=== PATIENT | female | born 1960 | race Two or more races ===

== ENCOUNTER → 2024-05-24 | Outpatient (CLI) | payer MEDICAID, SELFPAY ==
--- NOTE | 2024-05-24 15:30 | XR_ITS ---
Examination: Screening digital mammography, bilateral Computer aided detection 3-D breast Tomosynthesis, bilateral Date and time of exam: May 24, 2024 1255 hours Compared to mammograms dating to August 19, 2016 Indication: Screening Technique: Nonmagnified MLO, CC views of the breasts to been obtained, reconstructed from 3-D Tomosynthesis images. R2 computer aided detection program utilized for evaluation of suspicious masses and/or abnormal calcifications. 3-D Tomosynthesis images obtained. Findings: Scattered areas of fibroglandular density Scattered benign calcifications. No interval suspicious masses Impression: BI-RADS category II: Benign Findings. Recommend 1 year follow-up mammogram.
== END | disposition home or self-care (01) ==
PROVIDERS: PCP Specialist; Referring Provider Specialist; Visit Provider Specialist
DX: Z12.31 Encounter for screening mammogram for malignant neoplasm of breast (principal); R92.323 Mammographic fibroglandular density, bilateral breasts; R92.1 Mammographic calcification found on diagnostic imaging of breast
CPT/HCPCS: 77063; 77067

== ENCOUNTER → 2024-06-20 | Outpatient (CLI) | payer MEDICAID, SELFPAY ==
--- NOTE | 2024-06-20 | XR_ITS ---
Examination: PA lateral chest 2 views TECHNIQUE: Upright AP lateral chest 2 views Exam date and time: June 20, 2024 1241 hours Comparison 02/28/2020 INDICATIONS: Coughing congestion beginning 3 weeks ago. FINDINGS: Normal heart size On the lateral view mild pneumonia posterior basal segment left lower lobe No pulmonary edema IMPRESSION: Mild pneumonia posterior basal segment left lower lobe
== END | disposition home or self-care (01) ==
PROVIDERS: PCP Specialist; Referring Provider Physician Assistant; Visit Provider Physician Assistant
DX: J18.9 Pneumonia, unspecified organism (principal)
CPT/HCPCS: 71046

== ENCOUNTER → 2024-08-09 | Outpatient (CLI) | payer MEDICAID, SELFPAY ==
--- NOTE | 2024-08-09 09:30 | XR_ITS ---
Examination: Abdomen sonogram, Limited Date and time of exam: August 19, 2024 1104 hours INDICATIONS: Right upper abdominal pain radiating to back beginning one year ago Technique: Real-time rees scale transabdominal sonographic images of the upper abdomen obtained. Findings: Absent gallbladder Normal common bile duct 0.5 cm Pancreatic head 2.5 cm Liver 16.2 cm smooth contour fatty infiltration 13 mm liver cyst Normal hepatopedal portal venous flow Patent IVC IMPRESSION: Absent gallbladder Normal common bile duct Fatty liver
== END | disposition home or self-care (01) ==
LOC: CDIM 10:37
PROVIDERS: PCP Internal Medicine Gastroenterology; Referring Provider Internal Medicine Gastroenterology; Visit Provider Internal Medicine Gastroenterology
DX: K76.0 Fatty (change of) liver, not elsewhere classified (principal); Z90.49 Acquired absence of other specified parts of digestive tract
CPT/HCPCS: 76705

== ENCOUNTER → 2024-09-18 | Outpatient (CLI) | payer MEDICAID, SELFPAY ==
--- NOTE | 2024-09-18 13:47 | XR_ITS ---
Examination: Lumbar spine 3 views Technique one AP lateral coned lateral lower lumbar spine 3 views Exam date and time: September 18, 2024 1359 hours INDICATIONS: Low back pain months. FINDINGS: Minimal anterolisthesis L4 on L5 No lumbar fracture Moderate lumbar spondylosis Advanced disc narrowing L5-S1 with posterior osteophyte formation IMPRESSION: Advanced degenerative disc disease L5-S1
== END | disposition home or self-care (01) ==
LOC: CDIM 13:00
PROVIDERS: PCP Family Medicine; Referring Provider Physician Assistant; Visit Provider Physician Assistant
DX: M51.379 Other intervertebral disc degeneration, lumbosacral region without mention of lumbar back pain or lower extremity pain (principal)
CPT/HCPCS: 72100

== ENCOUNTER 2024-11-27 11:30 | Day surgery (SDC) | payer MEDICAID, SELFPAY ==
--- NOTE | 2024-11-26 09:42 | EKG_ITS ---
[facility] Test Date: 2024-11-26 Pat Name: DANI BROCK Department: Room: - Gender: Female Principal Embedded Software Engineer: ELOISA : 1960 Requested By: Antwan Zamarripa Order Number: [id number] Reading MD: Antwan Zamarripa Measurements Intervals [place] Rate: 78 P: 44 PA: 170 QRS: 67 QRSD: 108 T: 78 QT: 399 QTc: 456 Interpretive Statements SINUS RHYTHM Compared to ECG 09/18/2020 09:26:12 No significant changes /store/[id number]
[2024-11-26 12:35] LABS: Alanine Aminotransferase 23 U/L (10-49); Albumin, Serum 4.7 gm/dL (3.4-4.8); Alkaline Phosphatase 97 U/L (46-116); Anion Gap 10 (7-16); Aspartate Amino Transferase 30 U/L (0-34); BUN/Creatinine Ratio 13 Ratio (12-20); Bilirubin,Total 0.7 mg/dL (0.3-1.2); Blood Urea Nitrogen 9 mg/dL (9-23); Calcium 9.6 mg/dL (8.3-10.6); Calcium (Corrected) 9.6 mg/dL (8.5-10.1); Carbon Dioxide 24.9 mMol/L (20.0-31.0); Chloride 102 mMol/L (98-107); Creatinine (Component) 0.7 mg/dL (0.6-1.3); Globulin 2.4 gm/dL (2.3-3.5); Glucose 108 mg/dL (74-106); Osmolality,Calculated 273 (275-295); Potassium 3.5 mMol/L (3.4-5.1); Sodium 137 mMol/L (136-145); Total Protein 7.1 gm/dL (5.7-8.2); eGFR > 60 See Note
[2024-11-26 14:55] VITALS: BMI 34.8
[2024-11-27 12:23] VITALS: BP 119/72; PULSE 71; RESP 13; TEMP 36.9; O2SAT 93
[2024-11-27] MEDS: RINGERS LACTATED 500 ML 500 ML 20 ML IV (12:39)
[2024-11-27 14:29] VITALS: BP 137/100; PULSE 74; RESP 18; O2SAT 98
[2024-11-27] MEDS: RINGERS LACTATED 1000 ML 1,000 ML 999 ML IV (14:29)
[2024-11-27 15:16] VITALS: BP 140/89; PULSE 70; RESP 15; TEMP 36.5; O2SAT 97
[2024-11-27 15:25] VITALS: BP 134/63; PULSE 68; RESP 15; O2SAT 96
[2024-11-27 15:35] VITALS: BP 140/84; PULSE 64; RESP 16; O2SAT 96
--- NOTE | 2024-11-27 15:38 | SUR.PHASEII ---
1516: Pt received in [facility] via [facility]. Report from Johanne WELSH. Pt groggy, but awake. Resp even, unlabored. VS stable. Denies pain. 1539: Pt more awake, alert. Resp even, unlabored. VS stable. Denies pain. Pt sitting up tolerating ice chips with no difficulty swallowing and no n/v.
[2024-11-27 15:45] VITALS: BP 124/86; PULSE 60; RESP 15; TEMP 36.6; O2SAT 99
--- NOTE | 2024-11-27 16:37 | SUR.PHASEII ---
Addendum entered by Kathi Sosa RN 11/27/24 16:41: Time for 1600 note timed in error. Time should reflect 1630. Original Note: 1600: Pt fully awake, oriented x3. VS stable. Denies pain. Pt assisted to restroom. Ambulation steady. Pt expelled large amount of air. Pt requested daughter interpret for her. Pt and daughter stated understanding of discharge instructions. Pt discharged from [facility] in stable condition.
== END 2024-11-27 16:30 | disposition home or self-care (01) ==
PROVIDERS: Anesthesiology; PCP Nurse Practitioner Family; Referring Provider Internal Medicine Gastroenterology; Visit Provider Internal Medicine Gastroenterology
PROC: 0DJD8ZZ Inspection of Lower Intestinal Tract, Via Natural or Artificial Opening Endoscopic (ICD-10-PCS; CPT 45378; principal; 2024-11-27 13:15)
PROC: (CPT 43239; 2024-11-27 13:15)
DX: D12.4 Benign neoplasm of descending colon (principal); D12.0 Benign neoplasm of cecum; K63.3 Ulcer of intestine; K64.9 Unspecified hemorrhoids; I10 Essential (primary) hypertension; Z01.810 Encounter for preprocedural cardiovascular examination
CPT/HCPCS: 45385; 45380; 36415; 80053; 93005; A4217; J7120

== ENCOUNTER → 2024-12-24 | Outpatient (CLI) | payer MEDICAID, SELFPAY ==
--- NOTE | 2024-12-24 09:30 | XR_ITS ---
Examination: CT chest with intravenous contrast CT abdomen with intravenous contrast CT pelvis with intravenous contrast 2-D coronal and sagittal reconstructions Time of exam: December 24, 2024 1023 hours Comparison June 14, 2022 INDICATIONS: Right upper abdominal pain radiating to the back beginning 5 months ago CTDI: vol (mGy) : 20.2 DLP: (mGycm): 1088 Technique: Multiple axial images of the chest, abdomen and pelvis with intravenous contrast, 3.0 mm slice thickness. Images obtained post intravenous injection Isovue 370 60 cc. 2-D sagittal and coronal reconstructions. Low dose protocols were performed. One or more of the following dose reduction techniques were used; automated exposure control, adjustment of the mA and/or KV according to patient size, use of iterative reconstruction technique. Findings: No thoracic aortic aneurysm dilatation No pulmonary artery emboli. No paratracheal tracheobronchial or bronchopulmonary adenopathy Linear parenchymal disease at the right base, 30 mm compared to 23 mm on June 14, 2022 Fatty infiltration throughout the liver Gallbladder not visualized No pancreatic splenic or adrenal mass No renal or ureteral calculi, no hydronephrosis Aorta normal size Normal appendix No bowel obstruction No diverticulitis Contracted urinary bladder Absent uterus No pelvic mass Severe osteopenia, stable sclerotic foci compared with June 14, 2022 IMPRESSION: More prominent linear parenchymal disease at the right base, 30 mm compared to 23 mm on June 14, [address] scan follow-up to assess whether this disease is hypermetabolic
== END | disposition home or self-care (01) ==
PROVIDERS: PCP Family Medicine; Referring Provider Family Medicine; Visit Provider Family Medicine
DX: K76.0 Fatty (change of) liver, not elsewhere classified (principal)
CPT/HCPCS: 71260; 74177; A4649; Q9967

== ENCOUNTER → 2025-02-05 | Outpatient (CLI) | payer MEDICAID, SELFPAY ==
--- NOTE | 2025-02-05 15:15 | XR_ITS ---
Examination: MRI lumbar spine without contrast Date and time of exam: February 05, 2025, 1619 hrs. Indications: Low back pain 7 years radiating to left hip and down the left leg to the foot Technique: Multiple MRI axial and sagittal sections lumbar spine. Sagittal T2-weighted images, TR 3500, TE 118 T1 weighted transverse sections, TR 688 T8.5, T2-weighted sagittal sections T1 weighted sagittal sections TR 621, TE 30 T2 axial sections, TR 4, 190, TE 84. Findings: Grade 1 anterolisthesis L4 on L5 No lumbar fracture. Advanced disc narrowing L5-S1. Diffuse lumbar disc desiccation. Adequate alignment lumbar vertebral bodies. L5-S1 6 mm central lumbar disc bulge extending to the foraminal regions with mild left moderate right L5 ganglionic compression L4-L5 6 mm central lumbar disc bulge, mild bilateral L4 ganglionic compression More cephalad levels unremarkable. Impression: Advanced degenerative disc disease L5-S1 L5-S1 6 mm central lumbar disc bulge, mild to moderate right L5 ganglionic compression. L4-L5 6 mm central lumbar disc bulge, mild bilateral L4 ganglionic compression.
== END | disposition home or self-care (01) ==
PROVIDERS: PCP Specialist; Referring Provider Specialist; Visit Provider Specialist
DX: M51.360 Other intervertebral disc degeneration, lumbar region with discogenic back pain only (principal); M51.370 Other intervertebral disc degeneration, lumbosacral region with discogenic back pain only; G95.20 Unspecified cord compression
CPT/HCPCS: 72148